=== PATIENT | female | born 1960 | race Caucasian/White ===

== ENCOUNTER 2020-10-28 23:57 | Emergency (ER) | payer BC ==
[2020-10-29] MEDS ORDERED: Morphine 4 MG/ML VIAL ONE (01:43)
== END 2020-10-29 02:07 | disposition home or self-care (01) ==
LOC: ERS 23:57
DX: S39.012A Strain of muscle, fascia and tendon of lower back, initial encounter (principal); Z79.899 Other long term (current) drug therapy; I10 Essential (primary) hypertension
CPT/HCPCS: 96372; 99283; J2270

== ENCOUNTER 2021-02-20 09:25 | Outpatient (CLI) | payer BC ==
[2021-02-20 10:58] LABS: Anion Gap 12 mmol/L (10-20); BUN (Urea Nitrogen) 11 mg/dL (9.8-20.1); Calc. Creatinine Clearance 0 mL/min (70-130); Calcium 9.4 mg/dL (7.8-10.44); Carbon Dioxide 28 mmol/L (22-29); Chloride 103 mmol/L (98-107); Glucose 182 mg/dL (70-105); Potassium 3.9 mmol/L (3.5-5.1); Sodium 139 mmol/L (136-145)
[2021-02-20 23:17] LABS: SARS-CoV-2 PCR by NAA Not Detected (NotDetected)
== END 2021-02-20 09:26 | disposition home or self-care (01) ==
LOC: LABBT 09:25
PROVIDERS: ATTEND Neurological Surgery
DX: Z01.818 Encounter for other preprocedural examination (principal); M51.26 Other intervertebral disc displacement, lumbar region; Z20.822 Contact with and (suspected) exposure to COVID-19
CPT/HCPCS: 80048; 93005; 93010; U0003; U0005

== ENCOUNTER 2021-02-25 05:55 | Day surgery (SDC) | payer BC ==
[2021-02-24 11:11] VITALS: BMI 41.5
[2021-02-25] MEDS ORDERED: EPINEPHrine 1 MG/ML AMP ONE (06:10)
[2021-02-25] MEDS ORDERED: Bupivacaine PF 0.5% 30 ML VIAL ONE (06:10)
[2021-02-25] MEDS ORDERED: Thrombin 5000 UNITS/5 ML VIAL ONE (06:10)
[2021-02-25] MEDS ORDERED: Lidocaine 2% Jelly 5 ML TUBE ONE (06:12)
[2021-02-25] MEDS ORDERED: Fentanyl 100 MCG/2 ML VIAL ONE ×2 (06:13→08:30)
[2021-02-25] MEDS ORDERED: Midazolam HCl 2 mg/2 ml Vial ONE (06:51)
[2021-02-25] MEDS ORDERED: SUGAMMADEX SODIUM 200 MG/2 ML VIAL ONE (06:51)
[2021-02-25] MEDS ORDERED: Ketorolac Tromethamine 30 MG/ML VIAL ONE (07:01)
[2021-02-25] MEDS ORDERED: ePHEDrine 50 MG/ML VIAL ONE (07:01)
[2021-02-25] MEDS ORDERED: Rocuronium Bromide 10 MG/ML (10ML VIAL) ONE (07:01)
[2021-02-25] MEDS ORDERED: Ondansetron PF 4 MG/2 ML Vial ONE (07:01)
[2021-02-25] MEDS ORDERED: Lidocaine 1% PF 5 ML VIAL ONE (07:01)
[2021-02-25] MEDS ORDERED: Dexamethasone 20 MG/5 ML VIAL ONE (07:01)
[2021-02-25] MEDS ORDERED: diphenhydrAMINE 50 MG/ML VIAL ONE (07:01)
[2021-02-25] MEDS ORDERED: PROPOFOL 200 MG/20 ML VIAL ONE (07:01)
[2021-02-25] MEDS ORDERED: HYDROcodone/Acetaminophen 5/325 mg Tablet ONE (09:05)
[2021-02-25] MEDS ORDERED: Promethazine HCl 25 MG/ML VIAL ONE (09:08)
== END 2021-02-25 12:25 | disposition home or self-care (01) ==
LOC: SDC 05:55
PROVIDERS: ATTEND Neurological Surgery
PROC: 01NB0ZZ Release Lumbar Nerve, Open Approach (ICD-10-PCS; principal; 2021-02-25)
PROC: 0SB20ZZ Excision of Lumbar Vertebral Disc, Open Approach (ICD-10-PCS; principal; 2021-02-25)
DX: M51.16 Intervertebral disc disorders with radiculopathy, lumbar region (principal); G89.29 Other chronic pain; I10 Essential (primary) hypertension; M19.90 Unspecified osteoarthritis, unspecified site; Z79.899 Other long term (current) drug therapy; Z88.5 Allergy status to narcotic agent; Z88.8 Allergy status to other drugs, medicaments and biological substances; Z91.018 Allergy to other foods
CPT/HCPCS: 76000; C1713; J0171; J0690; J1100; J1200; J1885; J2250; J2405; J2550; J2704; J3010; J3490; S0020

== ENCOUNTER 2022-06-02 08:28 | Outpatient (CLI) | payer BC | END 2022-06-02 08:29 | disposition home or self-care (01) | LOC: TBSIIMAG 08:28 | PROVIDERS: ATTEND Neurological Surgery | DX: M51.16 Intervertebral disc disorders with radiculopathy, lumbar region (principal); M51.37 Other intervertebral disc degeneration, lumbosacral region; M50.122 Cervical disc disorder at C5-C6 level with radiculopathy; M50.123 Cervical disc disorder at C6-C7 level with radiculopathy | CPT/HCPCS: 72156; 72158; 82565 ==

== ENCOUNTER 2022-07-01 08:48 | Outpatient (CLI) | payer BC ==
[2022-07-01 10:25] LABS: Anion Gap 14 mmol/L (10-20); BUN (Urea Nitrogen) 9 mg/dL (9.8-20.1); Calc. Creatinine Clearance 0 mL/min (70-130); Calcium 9.5 mg/dL (7.8-10.44); Carbon Dioxide 26 mmol/L (22-29); Chloride 104 mmol/L (98-107); Estimated GFR 77; Glucose 149 mg/dL (70-105); Sodium 140 mmol/L (136-145)
== END 2022-07-01 08:49 | disposition home or self-care (01) ==
LOC: LABBT 08:48
PROVIDERS: ATTEND Neurological Surgery
DX: Z01.812 Encounter for preprocedural laboratory examination (principal); M54.16 Radiculopathy, lumbar region
CPT/HCPCS: 80048

== ENCOUNTER 2022-07-07 07:27 | Day surgery (SDC) | payer BC ==
[2022-07-05 15:45] VITALS: BMI 38.2
[2022-07-07] MEDS ORDERED: Midazolam HCl 2 mg/2 ml Vial ONE ×2 (07:44→08:29)
[2022-07-07] MEDS ORDERED: Thrombin 5000 UNITS/5 ML VIAL ONE (08:28)
[2022-07-07] MEDS ORDERED: Bupivacaine HCl 0.5%/Epinephrine 1:200,000/PF 30 ml Vial ONE (08:28)
[2022-07-07] MEDS ORDERED: fentaNYL PF 100 MCG/2 ML SYRINGE ONE (08:31)
[2022-07-07] MEDS ORDERED: HYDROmorphone 0.5 MG/0.5 ML SYRINGE ONE (08:31)
[2022-07-07] MEDS ORDERED: Sodium Chloride 0.9% 100 ML ONE ×2 (08:44→12:13)
[2022-07-07] MEDS ORDERED: CEFAZOLIN 2 GM VIAL ONE ×2 (08:44→12:13)
[2022-07-07] MEDS ORDERED: ePHEDrine Sulfate 50 MG/10 ML VIAL ONE (08:53)
[2022-07-07] MEDS ORDERED: GLYCOPYRROLATE/PF 0.2 MG/ML VIAL ONE (08:53)
[2022-07-07] MEDS ORDERED: Rocuronium Bromide 10 MG/ML (10ML VIAL) ONE (08:53)
[2022-07-07] MEDS ORDERED: Dexamethasone 20 MG/5 ML VIAL ONE (08:53)
[2022-07-07] MEDS ORDERED: NEOSTIGMINE 3 MG/3 ML SYR 3 MG/3 ML SYRINGE ONE (08:53)
[2022-07-07] MEDS ORDERED: Ondansetron PF 4 MG/2 ML Vial ONE ×2 (08:53→10:57)
[2022-07-07] MEDS ORDERED: Lidocaine 1% PF 5 ML VIAL ONE (08:53)
[2022-07-07] MEDS ORDERED: PROPOFOL 200 MG/20 ML VIAL ONE (08:53)
[2022-07-07] MEDS ORDERED: fentaNYL 50 mcg/mL 1 mL Vial ONE (10:31)
== END 2022-07-07 12:55 | disposition home or self-care (01) ==
LOC: SDC 07:27
PROVIDERS: ATTEND Neurological Surgery
PROC: 0SB20ZZ Excision of Lumbar Vertebral Disc, Open Approach (ICD-10-PCS; principal; 2022-07-07)
DX: M51.16 Intervertebral disc disorders with radiculopathy, lumbar region (principal); M19.90 Unspecified osteoarthritis, unspecified site; G89.29 Other chronic pain; I10 Essential (primary) hypertension; Z79.899 Other long term (current) drug therapy; Z88.8 Allergy status to other drugs, medicaments and biological substances; Z91.018 Allergy to other foods
CPT/HCPCS: J1100; J1170; J2250; J2405; J2704; J3010; J3490

== ENCOUNTER 2022-07-30 12:32 | Outpatient (CLI) | payer BC | END 2022-07-30 12:33 | disposition home or self-care (01) | LOC: TBSIIMAG 12:32 | PROVIDERS: ATTEND Neurological Surgery | DX: M25.552 Pain in left hip (principal) ==

== ENCOUNTER 2022-09-08 09:15 | Outpatient (CLI) | payer BC | END 2022-09-08 09:16 | disposition home or self-care (01) | LOC: BICMRI 09:15 | PROVIDERS: ATTEND Neurological Surgery | DX: M25.552 Pain in left hip (principal); M76.02 Gluteal tendinitis, left hip ==

== ENCOUNTER 2022-11-15 07:32 | Outpatient (CLI) | payer BC ==
[2022-11-15] MEDS ORDERED: Magnevist 469MG/ML 20 ML VIAL ONE (11:28)
== END 2022-11-15 07:33 | disposition home or self-care (01) ==
LOC: BICMRI 07:32
PROVIDERS: ATTEND Specialist
DX: M47.26 Other spondylosis with radiculopathy, lumbar region (principal); M51.16 Intervertebral disc disorders with radiculopathy, lumbar region; M25.78 Osteophyte, vertebrae; Z98.890 Other specified postprocedural states
CPT/HCPCS: 72158; 82565; A9579

== ENCOUNTER 2022-12-30 12:39 | Outpatient (CLI) | payer BC | END 2022-12-30 12:40 | disposition home or self-care (01) | LOC: BICMAMMO 12:39 | PROVIDERS: ATTEND Internal Medicine | DX: Z12.31 Encounter for screening mammogram for malignant neoplasm of breast (principal) | CPT/HCPCS: 77063; 77067 ==

== ENCOUNTER 2024-01-02 13:48 | Outpatient (CLI) | payer BC | END 2024-01-02 13:49 | disposition home or self-care (01) | LOC: BICMAMMO 13:48 | PROVIDERS: ATTEND Internal Medicine | DX: Z12.31 Encounter for screening mammogram for malignant neoplasm of breast (principal) | CPT/HCPCS: 77063; 77067 ==

== ENCOUNTER 2025-01-15 13:44 | Outpatient (CLI) | payer BC | END 2025-01-15 13:45 | disposition home or self-care (01) | LOC: BICMAMMO 13:44 | PROVIDERS: ATTEND Internal Medicine | DX: Z12.31 Encounter for screening mammogram for malignant neoplasm of breast (principal) | CPT/HCPCS: 77063; 77067 ==